=== PATIENT | female | born 1990 | race Caucasian/White ===

== ENCOUNTER 2020-04-13 14:39 | Inpatient (IN) ==
[2020-04-13 12:15] LABS: Basophils % 0.4 %; Eosinophils % 0.2 %; Hematocrit 39.4 % (35.3-44.9); Hemoglobin 13.2 g/dL (11.5-15.4); Immature Granulocytes % 0.8 % (0-4); Lymphocytes # 1.2 K/mcL (0.6-4.6); Lymphocytes % 10.4 %; Mean Corpuscular HGB Conc 33.5 g/dL (31.6-35.5); Mean Corpuscular Hemoglobin 30.8 pg (28.0-33.3); Mean Corpuscular Volume 91.8 fL (83.0-100.0); Mean Platelet Volume 11.8 fL (9.4-12.4); Monocytes # 0.5 K/mcL (0.0-1.3); Monocytes % 4.7 %; Neutrophils # 9.3 K/mcL (1.6-8.9); Platelet Count 173 K/mcL (140-400); Red Blood Count 4.29 M/mcL (3.82-4.97); Red Cell Distribution Width 13.2 % (11.5-14.5); Segmented Neutrophils % 83.5 %; White Blood Count 11.1 K/mcL (4.3-11.1)
[2020-04-13 12:28] LABS: Bilirubin,Urine Negative (Negative); Blood,Urine Moderate (Negative); Clarity,Urine Clear (Clear); Color,Urine Light-Yellow (Yellow); Glucose,Urine (UA) Normal (Normal); Ketones,Urine 10 mg/dL (Negative); Leukocyte Esterase,Urine Negative (Negative); Mucus,Urine Few per lpf (None-Few); Nitrite,Urine Negative (Negative); PH,Urine 6.5 pH Units (5.0-8.0); Protein,Urine Trace mg/dL (Neg-Trace); Specific Gravity,Urine 1.021 (1.010-1.025); Squamous Epithelial Cell,Urine Few per hpf (None-Few); Urobilinogen,Urine Normal (Normal); WBC,Urine 0-3 per hpf (0-3)
[~2020-04-13 14:39] MED LIST: Azithromycin 500 MG in 0.9 % Sodium Chloride 250 ML IVPB ONE; CeFAZolin 2,000 MG/50 ML BAG IVPB ONE; Famotidine 20 MG/2 ML VIAL IVP ONE; Metoclopramide 10 MG/2 ML VIAL IVP ONE; Naloxone 0.4 MG/ML INJ IVP PRN; Oxytocin 20 units/ LR 1000 mL 20 UNIT/1,000 ML BAG IVC ONE; Ringers Solution, Lactated 1,000 ML IVC ONE; Ringers Solution, Lactated 1,000 ML IVC SCH
[2020-04-13] MEDS ORDERED: Ondansetron 4 MG/2 ML VIAL IVP PRN ×2 (15:12→19:46)
[2020-04-13] MEDS ORDERED: Acetaminophen IV 1,000 MG/100 ML INFUS..BTL IVPB ONE (15:12)
[2020-04-13] MEDS ORDERED: *HR* HYDROmorphone PF 0.5 MG/0.5 ML SYRINGE IVP PRN (15:12)
[2020-04-13] MEDS ORDERED: *HR* Morphine Sulfate/PF 10 MG/10 ML AMPUL ONE (15:18)
[2020-04-13] MEDS ORDERED: *HR* FentaNYL (PF) 100 MCG/2 ML VIAL ONE (15:18)
[2020-04-13] MEDS ORDERED: *HR* Oxytocin 10 UNIT/ML VIAL IM ONE ×2 (15:19→16:14)
[2020-04-13] MEDS ORDERED: *HR* Phenylephrine 10 MG/ML VIAL ONE (15:25)
[2020-04-13] MEDS ORDERED: Ondansetron 4 MG/2 ML VIAL ONE (16:04)
[2020-04-13] MEDS ORDERED: Metoclopramide 10 MG/2 ML VIAL IVP PRN (19:46)
[2020-04-13] MEDS ORDERED: Naloxone 0.4 MG/ML INJ IVP PRN (19:46)
[2020-04-13] MEDS ORDERED: Sennosides 8.6 MG TABLET PO PRN (19:46)
[2020-04-13] MEDS ORDERED: Rho Immune Globulin 1,500 UNIT SYRINGE IM ONE (19:46)
[2020-04-13] MEDS ORDERED: Simethicone 80 MG TAB.CHEW PO PRN (19:46)
[2020-04-13] MEDS ORDERED: Oxytocin 20 units/ LR 1000 mL 20 UNIT/1,000 ML BAG IVC SCH ×2 (19:46)
[2020-04-13] MEDS: Ibuprofen 600 MG TABLET PO PRN (20:05)
[2020-04-13] MEDS ORDERED: Acetaminophen 325 MG TABLET PO PRN (20:30)
[2020-04-14] MEDS: Ibuprofen 600 MG TABLET PO PRN ×2 (04:58→23:54)
[2020-04-14] MEDS: Prenatal Vit/FA 1 EACH TABLET PO SCH (07:39)
[2020-04-14 07:46] LABS: Basophils % 0.2 %; Hematocrit 35.6 % (35.3-44.9); Hemoglobin 11.8 g/dL (11.5-15.4); Immature Granulocytes % 0.8 % (0-4); Lymphocytes # 1.4 K/mcL (0.6-4.6); Lymphocytes % 8.9 %; Mean Corpuscular HGB Conc 33.1 g/dL (31.6-35.5); Mean Corpuscular Hemoglobin 30.9 pg (28.0-33.3); Mean Corpuscular Volume 93.2 fL (83.0-100.0); Mean Platelet Volume 11.7 fL (9.4-12.4); Monocytes # 0.9 K/mcL (0.0-1.3); Monocytes % 5.9 %; Neutrophils # 12.8 K/mcL (1.6-8.9); Platelet Count 155 K/mcL (140-400); Red Blood Count 3.82 M/mcL (3.82-4.97); Red Cell Distribution Width 13.2 % (11.5-14.5); Segmented Neutrophils % 84.2 %; White Blood Count 15.2 K/mcL (4.3-11.1)
[2020-04-14] MEDS: *HR* OxyCODONE/APAP 5/325 TABLET PO PRN (18:50)
[2020-04-15] MEDS: *HR* OxyCODONE/APAP 5/325 TABLET PO PRN ×2 (06:49→14:47)
[2020-04-15] MEDS: Ibuprofen 600 MG TABLET PO PRN ×3 (06:51→21:30)
[2020-04-15] MEDS: Prenatal Vit/FA 1 EACH TABLET PO SCH (09:35)
[2020-04-16 08:02] VITALS: BP 112/63
[2020-04-16] MEDS: Ibuprofen 600 MG TABLET PO PRN (08:30)
[2020-04-16] MEDS: Prenatal Vit/FA 1 EACH TABLET PO SCH (08:31)
[2020-04-16] MEDS: *HR* OxyCODONE/APAP 5/325 TABLET PO PRN (12:42)
== END 2020-04-16 15:30 | disposition home or self-care (01) | DRG 539 ==
LOC: 1NENULAB → 1NENUOBS 19:53
PROVIDERS: ADMIT Student in an Organized Health Care Education/Training Program; ATTEND Student in an Organized Health Care Education/Training Program